=== PATIENT | male | born 1945 | race Caucasian/White ===

== ENCOUNTER → 2016-10-17 | Day surgery (SDC) | payer SELFPAY ==
[~2016-10-17] VITALS: Ht 177.8 cm; Wt 119.0 kg
[~2016-10-17] MED LIST: AMOXIL (BID DO875 MG PO; ASPIRIN EC81 MG PO; BISOPROLOL FUMA10 MG PO; CARDIZEM30 MG PO; CENTRUM SILVER1 TAB PO; COUMADIN ** IA5 MG PO; COZAAR50 MG PO; GLUCOPHAGE500 MG PO; IMDUR30 MG PO; LIPITOR40 MG PO; METFORMIN HCL500 MG PO; NITROSTAT0.4 MG SL; NORCO 5-325 TA1 EACH PO; PERIDEX15 ML PO; PRILOSEC20 MG PO; RANEXA ER500 MG PO
--- NOTE | ~2016-10-17 | OR ---
PATIENT'S NAME: TOYA ALANIS [facility] AGE: 71 Y [address] ROOM: [place] [address] [place] [facility] [place]: 10/17/[place] OR/Procedure Report DISCHARGE DATE: FAMILY PHYSICIAN: Chika Becker APRN ATTENDING PHYSICIAN: Geremias Stubbs SURGEON: Geremias Stubbs MD/LIANA PODIATRY PROFESSOR: DATE OF PROCEDURE: 10/17/2016 PREOPERATIVE DIAGNOSIS: Nonrestorable dentition. POSTOPERATIVE DIAGNOSIS: Nonrestorable dentition. PROCEDURES: Removal of all remaining teeth and placement of 2 titanium implants in the lower cuspid extraction sites. ESTIMATED BLOOD LOSS: Minimal. OPERATIVE SUMMARY: After adequate IV sedation and local anesthetic, a full- thickness mucoperiosteal flap was raised in the facial surface of the maxillary and mandibular alveolar ridges. Teeth numbers 3, 5, 6, 7, 8, 9, 10, 19, 20, 21, 22, 23, 24, 25, 26, and 27 were removed with forceps and elevators without difficulty. Excess bony prominences were smoothed using rongeurs. Excess soft tissue sharply excised. We did place 5 x 15 Megagen titanium implants in the right and left mandibular cuspid extraction sites. The areas were then irrigated with sterile saline and closed with running interlocking 3- 0 chromic suture. The patient was taken to the recovery room in stable condition. GEREMIAS STUBBS MD/LIANA MGT/modl /[id number] CC: Fabien Spence DDS [address] [place] [address] d: t: 10/19/16 0939, OPERATIVE SUMMARY
[2016-10-17 09:19] LABS: INR - (THERAPEUTIC) 1.4 (0.92-1.07); PROTIME 14.7 SECONDS (9.8-11.4)
== END | disposition disaster alternative care site (69) ==
LOC: GPOC 10-14 15:00 → GSDC 08:12
PROVIDERS: Surgery
DX: K08.89 Other specified disorders of teeth and supporting structures (principal); I48.91 Unspecified atrial fibrillation; I25.10 Atherosclerotic heart disease of native coronary artery without angina pectoris; Z95.1 Presence of aortocoronary bypass graft; E11.9 Type 2 diabetes mellitus without complications; Z79.84 Long term (current) use of oral hypoglycemic drugs; E66.09 Other obesity due to excess calories; E78.5 Hyperlipidemia, unspecified; G47.33 Obstructive sleep apnea (adult) (pediatric); I73.9 Peripheral vascular disease, unspecified
CPT/HCPCS: J2001; J7030